=== PATIENT | male | born 1945 | race Caucasian/White ===

== ENCOUNTER 2017-08-02 14:13 | Emergency (ER) | payer MEDICARE, MEDICAID ==
[2017-08-02 14:28] VITALS: PULSE 98; O2SAT 98
--- NOTE | 2017-08-02 14:38 | C.PDOC ---
History Of Present Illness 72 year old male, whose PMHx includes chronic back and left knee pain (wears brace), presents to the ED for evaluation of a facial contusion sustained after he had a mechanical fall yesterday. Patient reports he tripped while walking outside, fell forward and hit his left eye. He noted significant bruising to left eye area this morning. Patient denies loss of consciousness, severe headache, dizziness, vision change, blurry vision, focal deficits, CP, SOB, dyspnea, diaphoresis, palpitation, nausea, vomiting, pain or deformity to bilateral upper and lower extremities. Ambulate to Ed for evaluation, not in any apparent distress. - HPI Time Seen by Provider: 08/02/17 14:30 Chief Complaint (Nursing): Trauma History Per: Patient History/Exam Limitations: no limitations Onset/Duration Of Symptoms: Hrs Location Of Injury: Left: Face (eye ) Additional History Per: Patient - Fall Fall:Prior To Injury: Tripped Past Medical History Reviewed: Historical Data, Nursing Documentation, Vital Signs Vital Signs: Last Vital Signs Temp 98.2 F 08/02/17 14:25 Pulse 98 H 08/02/17 14:25 Resp 18 08/02/17 14:25 BP 176/91 H 08/02/17 14:25 Pulse Ox 98 08/02/17 14:49 - Medical History PMH: Back Problems Surgical History: No Surg Hx Family History: States: Unknown Family Hx - Social History Hx Alcohol Use: No Hx Substance Use: No - Immunization History Hx Tetanus Toxoid Vaccination: No Hx Influenza Vaccination: No Hx Pneumococcal Vaccination: No Review Of Systems Eyes: Negative for: Vision Change Gastrointestinal: Negative for: Nausea, Vomiting Skin: Positive for: Other (facial contusion ) Neurological: Negative for: Headache, Dizziness, Other (syncope, loss of consciousness) Physical Exam - Physical Exam Appears: Well, Non-toxic, No Acute Distress Skin: Normal Color, Warm, Dry, No Rash Head: Atraumatic, Normacephalic Eye(s): bilateral: PERRL, EOMI (no pain or limitation on extraocular movement B/ L), left: Other (trace periorbital ecchymoses, no palpable defomrity.) Ear(s): Bilateral: Normal Nose: No Flaring, No Deformity, No Tenderness Oral Mucosa: Moist Throat: No Erythema, No Drooling Neck: Trachea Midline, No Midline Cervical Tenderness, No Paracervical Tenderness, No Step Off Deformity, Supple Cardiovascular: Rhythm Regular, No Murmur, No JVD Respiratory: No Decreased Breath Sounds, No Accessory Muscle Use, No Stridor, No Wheezing Gastrointestinal/Abdominal: Soft, No Tenderness, No Distention, No Guarding Back: No Vertebral Tenderness, No Paraspinal Tenderness Extremity: Normal ROM, No Tenderness, No Deformity, No Swelling Neurological/Psych: Oriented x3, Normal Speech, Normal Cognition, Normal Motor, Normal Sensation, Normal Reflexes ED Course And Treatment O2 Sat by Pulse Oximetry: 98 (on RA) Pulse Ox Interpretation: Normal - CT Scan/US CT head Other Rad Studies (CT/US): Radiology Report Reviewed CT/US Interpretation: PROCEDURE: CT HEAD WITHOUT CONTRAST. HISTORY: injury. COMPARISON: None available. TECHNIQUE: Axial computed tomography images were obtained through the head/brain without intravenous contrast. Radiation dose: Total exam DLP = 861.85 mGy-cm. This CT exam was performed using one or more of the following dose reduction techniques: Automated exposure control, adjustment of the mA and/or kV according to patient size, and/or use of iterative reconstruction technique. FINDINGS: HEMORRHAGE: No intracranial hemorrhage. BRAIN: Normal villarreal-white matter differentiation and density are appreciated throughout the cerebrum and cerebellum with the brainstem appearing unremarkable as well. There is no mass effect. There is no suspicious extra- axial fluid collection and the midline brain anatomy appears diffusely unremarkable. VENTRICLES: Unremarkable. No hydrocephalus. CALVARIUM: No destructive bony lesion or displaced fracture identified including through the skullbase. PARANASAL SINUSES: Unremarkable as visualized. No significant inflammatory changes. MASTOID AIR CELLS: Unremarkable as visualized. No inflammatory changes. OTHER FINDINGS: None. IMPRESSION: Unremarkable noncontrast CT of the Head. CT orbit/face Other Rad Studies (CT/US): Radiology Report Reviewed CT/US Interpretation: Creator : Joan Ramsey. Dictator : Aleksandr Curry MD. Wind Tunnel Engineer : Semaphore Operator : Aleksandr Curry MD. Approver2 : Report Date : 08/02/2017 15:16:15. My Comment : . PROCEDURE: CT ORBITS WITHOUT CONTRAST. HISTORY: injury. COMPARISON: None available. TECHNIQUE: Axial CT images of the orbits were obtained. Coronal and sagittal reformats were generated. Radiation dose: Total exam DLP = 532.88 mGy-cm. This CT exam was performed using one or more of the following dose reduction techniques: Automated exposure control, adjustment of the mA and/or kV according to patient size, and/or use of iterative reconstruction technique. FINDINGS: RIGHT ORBIT : RIGHT BONY ORBIT: No acute fracture identified. Likely chronic medial right lamina papyracea fracture is noted superiorly. RIGHT INTRAORBITAL STRUCTURES: Globe: Normal. Extraocular muscles: Normal. Post septal space: Normal. Optic Nerve: Normal. Lacrimal Apparatus: Normal. RIGHT PRESEPTAL SOFT TISSUES: Normal. LEFT ORBIT: LEFT BONY ORBIT: Normal. LEFT INTRAORBITAL STRUCTURES: Globe: Normal. Extraocular muscles: Normal. Post septal space: Normal. Optic Nerve: Normal. Lacrimal Apparatus: Normal. LEFT PRESEPTAL SOFT TISSUES: Limited preseptal oral edema is moderate at the left orbit extending into the left superior and lateral periorbital space. Postseptal soft tissue is unremarkable, similar to that at the right. No orbital fracture appreciable. OTHER: None. PARANASAL SINUSES/ MASTOIDS: Potential old medial right lamina papyracea fracture though none is seen at the left. IMPRESSION: Mild-to- moderate left periorbital preseptal soft tissue edema left orbit. No left or right acute orbital fracture. Chronic right upper lamina papyracea fracture is suggested. Progress Note: CT Head and CT Orbits/Facial ordered and reviewed. On re- evaluation, pt remained AAO#3, not in any apparent distress. Pt is afebrile, hemodynamicaly stable. Non-toxic. AMbulatory in Ed with stable gait. head: AT/ NC. Face: Left orbital ecchymoses noted, no palpable deformity, no pain or limitation on extraocular movemnet B/L. neck: Supple, (-) midline tenderness. FAROM of B/L UEs and LEs, no deformity. Neurologicaly intact. CT results review - no acute finding. Pt has clinical findings c/w facial contusion, head injury. Pt advised OBS 48 hrs for any sign of head injury-return to ED immediately if any new changes. NOted high BP omn triage, pt admits " did not take my BP medictaion at home today', otherwise denies any associated sx- severe headcahe, visual changes, focal deficits, back pain. ref. to f/u with PMD in 2-3 days for re-eval. return to ED if any worsening or new changes. Disposition Counseled Patient/Family Regarding: Studies Performed, Diagnosis, Need For Followup, Rx Given - Disposition Referrals: Kristian Ledezma MD [Medical Doctor] - Disposition: HOME/ ROUTINE Disposition Time: 15:30 Condition: STABLE Additional Instructions: OBSERVE 48 HRS FOR ANY SIGN OF HEAD INJURY-INTRACTABLE HEADACHE, VOMITING, VISUAL CHANGES OR ANY OTHER NEW CHANGES-RETURN TO ED IMMEDIATELY FOR RE- EVALUATION. TYLENOL NEED FOR PAIN FOLLOW UP WITH PMD IN 1-2 DAYS FOR RE-EVALUATION. RETURN TO ED IF ANY WORSENING OR NEW CHANGES. Instructions: Eye Contusion (DC), Minor Head Injury, High Blood Pressure (DC) Forms: [employer] ([place]) Print Language: YAKUT - Clinical Impression Clinical Impression: Head injury, Eye contusion, HTN (hypertension) - PA / APPLICATION SUPPORT ANALYST / Resident Statement MD/DO has reviewed & agrees with the documentation as recorded. - Scribe Statement The provider has reviewed the documentation as recorded by the Scribe (Maryana Magana) All medical record entries made by the Scribe were at my direction and personally dictated by me. I have reviewed the chart and agree that the record accurately reflects my personal performance of the history, physical exam, medical decision making, and the department course for this patient. I have also personally directed, reviewed, and agree with the discharge instructions and disposition.
--- NOTE | 2017-08-02 15:20 | CT ---
PROCEDURE: CT HEAD WITHOUT CONTRAST. HISTORY: injury COMPARISON: None available. TECHNIQUE: Axial computed tomography images were obtained through the head/brain without intravenous contrast. Radiation dose: Total exam DLP = 861.85 mGy-cm. This CT exam was performed using one or more of the following dose reduction techniques: Automated exposure control, adjustment of the mA and/or kV according to patient size, and/or use of iterative reconstruction technique. FINDINGS: HEMORRHAGE: No intracranial hemorrhage. BRAIN: Normal villarreal-white matter differentiation and density are appreciated throughout the cerebrum and cerebellum with the brainstem appearing unremarkable as well. There is no mass effect. There is no suspicious extra-axial fluid collection and the midline brain anatomy appears diffusely unremarkable. VENTRICLES: Unremarkable. No hydrocephalus. CALVARIUM: No destructive bony lesion or displaced fracture identified including through the skullbase. PARANASAL SINUSES: Unremarkable as visualized. No significant inflammatory changes. MASTOID AIR CELLS: Unremarkable as visualized. No inflammatory changes. OTHER FINDINGS: None. IMPRESSION: Unremarkable noncontrast CT of the Head.
--- NOTE | 2017-08-02 15:25 | CT ---
PROCEDURE: CT ORBITS WITHOUT CONTRAST. HISTORY: injury COMPARISON: None available. TECHNIQUE: Axial CT images of the orbits were obtained. Coronal and sagittal reformats were generated. Radiation dose: Total exam DLP = 532.88 mGy-cm. This CT exam was performed using one or more of the following dose reduction techniques: Automated exposure control, adjustment of the mA and/or kV according to patient size, and/or use of iterative reconstruction technique. FINDINGS: RIGHT ORBIT: RIGHT BONY ORBIT: No acute fracture identified. Likely chronic medial right lamina papyracea fracture is noted superiorly. RIGHT INTRAORBITAL STRUCTURES: Globe: Normal. Extraocular muscles: Normal. Post septal space: Normal. Optic Nerve: Normal. Lacrimal Apparatus: Normal. RIGHT PRESEPTAL SOFT TISSUES: Normal. LEFT ORBIT: LEFT BONY ORBIT: Normal. LEFT INTRAORBITAL STRUCTURES: Globe: Normal. Extraocular muscles: Normal. Post septal space: Normal Optic Nerve: Normal. Lacrimal Apparatus: Normal. LEFT PRESEPTAL SOFT TISSUES: Limited preseptal oral edema is moderate at the left orbit extending into the left superior and lateral periorbital space. Postseptal soft tissue is unremarkable, similar to that at the right. No orbital fracture appreciable. OTHER: None. PARANASAL SINUSES/ MASTOIDS: Potential old medial right lamina papyracea fracture though none is seen at the left. IMPRESSION: [id number] left periorbital preseptal soft tissue edema left orbit. No left or right acute orbital fracture. Chronic right upper lamina papyracea fracture is suggested.
[2017-08-02 15:41] VITALS: BP 180/95; RESP 20; TEMP 99.2
== END 2017-08-02 15:47 | disposition home or self-care (01) ==
LOC: C.ER 14:13
DX: S05.12XA Contusion of eyeball and orbital tissues, left eye, initial encounter (principal); W01.0XXA Fall on same level from slipping, tripping and stumbling without subsequent striking against object, initial encounter; Y93.01 Activity, walking, marching and hiking